=== PATIENT | male | born 1965 | race Caucasian/White ===

== ENCOUNTER 2020-05-21 15:58 | Emergency (ER) | payer SELFPAY ==
[~2020-05-21] VITALS: Ht 167.6 cm; Wt 79.5 kg
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
[2020-05-21] MEDS ORDERED: THIAMINE 100MG TABLET PO ONE (17:00)
[2020-05-21 17:09] LABS: BASOPHILS % (AUTO) 0 % (0-1); EOSINOPHILS % (AUTO) 2 % (1-7); LYMPHOCYTES % (AUTO) 33 % (22-44); MEAN CORPUSCULAR HEMOGLOBIN 28.1 pg (27.5-34.5); MEAN CORPUSCULAR HGB CONC 33.4 g/dL (33.2-36.2); MEAN PLATELET VOLUME 6.5 fL (7.4-10.4); MONOCYTES % (AUTO) 8 % (2-9); NEUTROPHILS % (AUTO) 58 % (42-75); PLATELET COUNT 379 x10^3/uL (130-400); RED CELL DISTRIBUTION WIDTH 16.6 % (9.4-14.8)
[2020-05-21 17:10] LABS: MD NO
[2020-05-21 17:20] LABS: ALBUMIN 3.4 g/dL (3.4-5.0); ANION GAP 5 mmol/L (5-15); CALCIUM 7.9 mg/dL (8.5-10.1); CHLORIDE 112 mmol/L (98-107)
[2020-05-21 17:29] LABS: ALANINE AMINOTRANSFERASE 155 U/L (12-78); ALKALINE PHOSPHATASE 145 U/L (45-117); BILIRUBIN,TOTAL 0.4 mg/dL (0.2-1.0); CREATININE 0.75 mg/dL (0.7-1.3); TOTAL PROTEIN 7.4 g/dL (6.4-8.2)
[2020-05-21 17:30] LABS: SALICYLATE LEVEL < 1.7 mg/dL (2.8-20.0)
[2020-05-21] MEDS ORDERED: THIAMINE 100MG TABLET ONE (18:23)
--- NOTE | 2020-05-21 18:56 | NUR ---
REPORT FROM CAROLE RN, PT RESTING ON ALIVIA PUGHTER IN VIEW
[2020-05-21 19:22] LABS: AMPHETAMINE SCREEN, URINE Negative (Negative); BARBITURATE SCREEN, URINE Negative (Negative); BENZODIAZEPINE SCREEN, URINE Negative (Negative); CANNABINOID SCREEN, URINE Negative (Negative); COCAINE SCREEN, URINE Negative (Negative); METHADONE SCREEN, URINE Negative (Negative); OPIATE SCREEN, URINE Negative (Negative)
--- NOTE | 2020-05-21 20:16 | NUR ---
pt resting on gurney, nad, appears comfortable, eyes closed, even and unlabored respirations, si precautions in place, sitter in line of sight, wctm.
--- NOTE | 2020-05-21 21:30 | NUR ---
PT RESTING ON CITLALI MARCUM, SITTER IN SIGHT
--- NOTE | 2020-05-21 22:19 | NUR ---
PT RESTING ON CITLALI NICHOLSON IN SIGHT
--- NOTE | 2020-05-21 22:43 | NUR ---
PT RESTING ON GURNEY, NAD, NO CHANGE IN CONDITION AT THIS TIME. SITTER IN LINE OF SIGHT, SI PRECAUTIONS IN PLACE, WCTM.
--- NOTE | 2020-05-22 00:15 | NUR ---
LATE ENTRY D/T PT CARE: PT RESTING ON TRIXIE GODWIN. NO CHANGE IN CONDITION, SITTER IN SIGHT
--- NOTE | 2020-05-22 01:15 | NUR ---
LATE ENTRY D/T PT CARE: PT RESTING ON TRIXIE GODWIN. NO CHANGE IN CONDITION, SITTER IN SIGHT
[2020-05-22 02:15] VITALS: BP 115/72
--- NOTE | 2020-05-22 02:17 | NUR ---
Patient given discharge instructions and they have confirmed that they understand the instructions. Patient ambulatory with steady gait. NAD, DENIES ADDITIONAL QUESTIONS. PROVIDED TAXI VOUCHER. NO PERSONAL BELONGINGS LEFT IN LOCKER OR ROOM AT TIME OF DC
== END 2020-05-22 02:27 | disposition home or self-care (01) ==
LOC: ED 18:19
DX: F33.9 Major depressive disorder, recurrent, unspecified (principal); R45.851 Suicidal ideations; F10.221 Alcohol dependence with intoxication delirium; Y90.0 Blood alcohol level of less than 20 mg/100 ml
CPT/HCPCS: 36415; 80053; 80299; 80307; 80320; 80329; 85025; 99284; G0480